=== PATIENT | female | born 1995 | race Two or more races ===

== ENCOUNTER 2022-05-30 15:53 | Emergency (ER) | payer OTHER ==
[~2022-05-30] VITALS: Ht 160 cm; Wt 68.5 kg
[2022-05-30] MEDS ORDERED: PRENATALES (16:27)
== END 2022-05-30 18:51 | disposition home or self-care (01) ==
LOC: ER 15:53
DX: O20.9 Hemorrhage in early pregnancy, unspecified (principal); Z3A.01 Less than 8 weeks gestation of pregnancy

== ENCOUNTER 2022-06-16 06:16 | Day surgery (SDC) | payer OTHER ==
[~2022-06-16 06:16] MED LIST: PRENATALES
== END 2022-06-16 17:05 | disposition home or self-care (01) ==
LOC: CIR.AMB 06:16
PROVIDERS: ATTEND Obstetrics & Gynecology
DX: O02.1 Missed abortion (principal); Z20.822 Contact with and (suspected) exposure to COVID-19; J45.909 Unspecified asthma, uncomplicated

== ENCOUNTER 2022-06-16 07:44 | Outpatient (CLI) | payer OTHER | END 2022-06-16 07:45 | disposition home or self-care (01) | LOC: LAB 07:44 | PROVIDERS: ATTEND Obstetrics & Gynecology | DX: Z03.818 Encounter for observation for suspected exposure to other biological agents ruled out (principal) ==

== ENCOUNTER 2023-05-06 12:38 | Outpatient (CLI) | payer OTHER | END 2023-05-06 13:35 | disposition home or self-care (01) | LOC: NST 12:38 | PROVIDERS: ATTEND Obstetrics & Gynecology | DX: Z34.83 Encounter for supervision of other normal pregnancy, third trimester (principal) ==

== ENCOUNTER 2023-06-30 12:35 | Outpatient (CLI) | payer OTHER | END 2023-06-30 13:40 | disposition home or self-care (01) | LOC: NST 12:35 | PROVIDERS: ATTEND Obstetrics & Gynecology | DX: Z34.83 Encounter for supervision of other normal pregnancy, third trimester (principal) ==

== ENCOUNTER 2023-07-06 15:30 | Inpatient (IN) | payer OTHER ==
[~2023-07-06] VITALS: Ht 160 cm; Wt 2.7 kg
[2023-07-11 01:58] LABS: URINE APPEARANCE Clear; URINE BILIRRUBIN Negative (NEGATIVE); URINE BLOOD Negative; URINE COLOR Yellow; URINE GLUCOSE Negative (NEGATIVE); URINE LEUKOCYTE Negative; URINE NITRATE Negative; URINE PROTEIN Negative (NEGATIVE); URINE UROBILINOGEN 0.2 E.U./dl
[2023-07-11 01:59] LABS: HEMATOCRIT 34.2 % (36.0-45.00); MEAN CELL VOLUME 87.8 fL (80.00-100.00); MEAN CORPUSCULAR HEMOGLOBIN 28.3 pg (27.00-32.0); MEAN CORPUSCULAR HGB CONC 32.3 g/dl (32.0-36.0); PLATELET COUNT 283 K/uL (150-450); RED CELL DISTRIBUTION WIDTH 13.7 % (11.5-14.5); URINE EPITHELIAL CELLS 19.3 uL (0.0-38.8); URINE RBC 6.1 uL (0.0-20.8); URINE WBC 5.2 uL (0.0-23.2)
[2023-07-11 02:21] LABS: ALBUMIN 2.5 gm/dL (3.4-5.0); BILIRUBIN TOTAL 0.16 mg/dL (0.3-1.2); CALCIUM 8.3 mg/dL (8.5-10.1); CREATININE SERUM 0.5 mg/dL (0.55-1.02); GFR 150.33; GLOBULINA 3.8 G/DL (2.4-3.5); POTASSIUM 3.84 mEq/L (3.5-5.1); TOTAL PROTEIN 6.3 gm/dL (6.4-8.2)
[2023-07-11 03:39] LABS: INR < 0.93; PROTHROMBIN TIME 9.4 SECONDS (9.0-11.5)
[2023-07-11 08:07] LABS: ABG PH 7.218 (7.35-7.45); ABG PO2 23.1 mmHg (80-100); BASE EXCESS -5.2 mmol/l; BICARBONATE 23.5 mmol/l (23-25); SaO2 27.4 %; Tco2 25.3 mmol/l; o2 21 %
[2023-07-12 06:33] LABS: HEMATOCRIT 26.9 % (36.0-45.00); HEMOGLOBIN 9.4 g/dL (12.0-15.00); MEAN CELL VOLUME 87.2 fL (80.00-100.00); MEAN CORPUSCULAR HEMOGLOBIN 30.6 pg (27.00-32.0); PLATELET COUNT 218 K/uL (150-450); RED BLOOD COUNT 3.08 M/uL (4.00-6.00); RED CELL DISTRIBUTION WIDTH 14.1 % (11.5-14.5)
== END 2023-07-13 15:57 | disposition home or self-care (01) | DRG 788 ==
LOC: LDR 07-11 01:25 → OB/GYN 07-11 08:06
PROVIDERS: Obstetrics & Gynecology; ADMIT Obstetrics & Gynecology; ATTEND Obstetrics & Gynecology
PROC: 4A1HXCZ Monitoring of Products of Conception, Cardiac Rate, External Approach (ICD-10-PCS; 2023-07-11)
PROC: 10D00Z1 Extraction of Products of Conception, Low, Open Approach (ICD-10-PCS; principal; 2023-07-11 07:00)
DX: O36.8130 Decreased fetal movements, third trimester, not applicable or unspecified (principal); Z3A.38 38 weeks gestation of pregnancy; Z37.0 Single live birth; Z20.822 Contact with and (suspected) exposure to COVID-19